=== PATIENT | female | born 1930 | race Caucasian/White ===

== ENCOUNTER 2018-02-25 08:37 | Emergency (ER) | payer MEDICARE, OTHER ==
[2018-02-25 08:49] VITALS: BP 180/62
[2018-02-25] MEDS ORDERED: IPRATROPIUM/ALBUTEROL SULFATE 3 ML AMPUL.NEB NEB STA (08:59)
[2018-02-25] MEDS ORDERED: Lidocaine 1% 5ml(IM or SUTURE)(PAIN CLINIC) IJ ONE ×2 (08:59→09:08)
[2018-02-25] MEDS ORDERED: SODIUM BICARBONATE 2.4 MEQ VIAL INJ ONE (09:00)
[2018-02-25] MEDS ORDERED: DIPH,PERTUSS(ACELL),TET VAC/PF 0.5 ML DISP.SYRIN IM ONE (09:39)
--- NOTE | 2018-02-25 09:41 | ED Physician Documentation ---
General Adult - HISTORIAN Historian: patient - HPI Stated Complaint: L leg lac Chief Complaint: Laceration/Recheck/Suture Onset: minutes Further Comments: yes (88 year old female patient presents with laceration to left lower leg; states she hit her leg on her walker this morning. Last tetanus unknown. Patient has not taken her morning medications.) - ROS CONST: no problems EYES/ENT: none CVS/RESP: none GI/: none MS/SKIN/LYMPH: none NEURO/PSYCH: denies: headache - PAST HX Past History: COPD, hypertension Other History: other (depression; HTN) Immunizations: tetanus (unknown; given in ER today) Allergies/Adverse Reactions: Allergies Allergy/AdvReac Type Severity Reaction Status Date / Time No Known Allergies Allergy Verified 02/25/18 08:49 Home Medications: Ambulatory Orders Medication Instructions Recorded Albuterol Sulfate [Ventolin HFN] 2 puff IH QID 05/06/16 Sertraline HCl [Zoloft] 1 tab PO DAILY 05/06/16 Flecainide Acetate 0.75 tab PO Q12 #60 tablet 05/07/16 Metoprolol Tartrate [Lopressor] 25 mg PO BID #60 tablet 05/07/16 - SOCIAL HX Smoking History: non-smoker - FAMILY HX Family History: No - VITAL SIGNS Vital Signs: Vital Signs Temp Pulse Resp BP Pulse Ox 98.1 F 80 16 180/62 92 02/25/18 09:55 02/25/18 09:55 02/25/18 09:55 02/25/18 09:55 02/25/18 09:55 - REVIEWED ASSESSMENTS Nursing Assessment Reviewed: Yes Vitals Reviewed: Yes Procedures Wound Location: lower extremity Wound Length: #2 4cm x 5 cm Wound's Depth, Shape: irregular, flap Wound Explored: clean Irrigated w/ Saline (ccs): 600 Betadine Prep?: No (chlorhexidine) Anesthesia: 1% Lidocaine (with Neut) Volume of Anesthetic: 10 Wound Repaired With: sutures, steri-strips Suture Size/Type: 5:0 Number of Sutures: 13 Layer Closure?: No Sterile Dressing Applied?: Yes Progress: #1 Laceration: Wound cleaned with chlorhexidine and NS 1cm superficial flap - tincture and steri strips x 3 placed #2 laceration: 4cm x 5 cm flap laceration with irregular edges at tip of flap Wound cleaned with chlorhexidine and NS; anesthetized with Lidocaine 1% and Neut - patient tolerated well. Irrigated with 600cc NS; no foreign body Closed using sterile technique 5.0 ethilon used due to poor skin integrity - x 13 stitches 3 steri strips to irregular edge of flap Patient tolerated procedure well; reviewed discharge instructions - verbalized understanding. Progress - Progress Progress: Tetanus updated in Er. ED Results Lab/Radiology - Orders Orders: ED Orders Category Date Time Status Diph,Pertuss(Acell),Tet Vac/Pf [Adacel] Med 02/25/18 09:39 Discontinued 0.5 ml IM .ONCE ONE Ipratropium/Albuterol Sulfate [Duoneb] Med 02/25/18 08:59 Discontinued 3 ml NEB STAT STA Lidocaine 1% 5ml(IM or SUTURE) [Xylocaine] Med 02/25/18 08:59 Discontinued 50 mg IJ NOW ONE Lidocaine 1% 5ml(IM or SUTURE) [Xylocaine] Med 02/25/18 09:08 Discontinued 50 mg IJ NOW ONE Sodium Bicarbonate [Neut] Med 02/25/18 09:00 Discontinued 2.4 meq INJ NOW ONE General Adult Physical Exam - PHYSICAL EXAM GENERAL APPEARANCE: mild distress EENT: eye inspection normal, MOE RESPIRATORY: no resp distress, chest non-tender, wheezes (expiratory - did not take her morning breathing treatment) CVS: reg rate & rhythm, heart sounds normal, equal pulses, no murmur, no gallop , PMI nml, no JVD, no friction rub, 24 ABDOMEN: soft, no organomegaly, normal bowel sounds, no abdominal bruit, no distension BACK: normal inspection, no CVA tenderness SKIN: warm/dry, normal color, other (#1 superficial flap left lower anterior leg - 1 cm; #2 Laceration - flap; 4cm x 5 cm; irregular; very poor skin turgor) EXTREMITIES: non-tender, normal range of motion, no evidence of injury, no edema , J, [employer] NEURO: oriented X3, CN's nml as tested, motor nml, sensation nml, mood/affect nml Discharge Clincal Impression: Laceration of leg Qualifiers: Encounter type: initial encounter Laterality: left Qualified Code(s): S81.812A - Laceration without foreign body, left lower leg, initial encounter Abrasion of leg Qualifiers: Encounter type: initial encounter Laterality: left Qualified Code(s): S80.812A - Abrasion, left lower leg, initial encounter Referrals: Aleks Carrillo [Primary Care Provider] - 2 Days Additional Instructions: Keep the wound clean and dry until it has healed. You can wash or shower after 24 hours. Do not soak the wound in water and make sure it is dry afterwards (gently pat the area dry with a clean towel). Do not get into a swimming pool, hot tub, nina or river until your stitches are removed. To remove your dressing, gently pull it off. If needed, you can dampen it with water then gently pull it off. Clean the laceration twice a day with hibiclens and rinse with water clean away any scabbed area Apply thin coat of antibiotic ointment after cleaning the wound. Cover with non-adherent bandage if able. If you have pain, take simple pain relief medication such as Tylenol or ibuprofen. If bandages or dressings get wet, they will need to be changed. Call your doctor for any signs of symptom of infection redness, drainage, pain. Have your stitches removed at your doctors office in 7-10 days. Condition: Stable Disposition: HOME, SELF-CARE Decision to Admit: NO Decision Time: 09:40
== END 2018-02-25 09:55 | disposition home or self-care (01) ==
LOC: ED 08:37
DX: S81.812A Laceration without foreign body, left lower leg, initial encounter (principal); S80.812A Abrasion, left lower leg, initial encounter; R06.2 Wheezing; W22.8XXA Striking against or struck by other objects, initial encounter; Y92.9 Unspecified place or not applicable
CPT/HCPCS: 90715; J7030; 12006; 94640; 96372